=== PATIENT | male | born 1990 | race Caucasian/White ===

== ENCOUNTER 2017-03-10 12:25 | Emergency (ER) | payer SELFPAY ==
[2017-03-10 13:13] VITALS: BP 129/84; PULSE 94; RESP 18; TEMP 98; O2SAT 98
--- NOTE | 2017-03-10 14:53 | ED PDOC ---
HPI: General Adult Time Seen by Provider: 03/10/17 13:47 Chief Complaint (Nursing): Lower Extremity Problem/Injury History Per: Patient Additional Complaint(s): Pt. states since this morning he's had atraumatic lower back pain radiating down both legs. States pain is worse with movement. Pt. states he did not take any medications to help relieve symptoms. Denies incontinence, weakness, dysuria , hematuria, fever, abdominal pain, N/V/D. Past Medical History Reviewed: Historical Data, Nursing Documentation, Vital Signs Vital Signs: Last Vital Signs Temp 98 F 03/10/17 13:09 Pulse 94 H 03/10/17 13:09 Resp 18 03/10/17 13:09 BP 129/84 03/10/17 13:09 Pulse Ox 98 03/10/17 13:09 - Family History Family History: States: No Known Family Hx - Home Medications Home Medications: Ambulatory Orders Medication Instructions Recorded Cyclobenzaprine [Cyclobenzaprine 10 mg PO Q8 PRN #30 tab 03/10/17 HCl] Naproxen [Naprosyn] 500 mg PO BID PRN #30 tab 03/10/17 - Allergies Allergies/Adverse Reactions: Allergies Allergy/AdvReac Type Severity Reaction Status Date / Time haloperidol [From Haldol] Allergy ANAPHYLAXIS Verified 03/10/17 13:13 Review of Systems ROS Statement: Except As Marked, All Systems Reviewed And Found Negative Musculoskeletal: Positive for: Back Pain Physical Exam - Physical Exam Appears: Positive for: Well, Non-toxic, No Acute Distress Skin: Positive for: Normal Color, Warm. Negative for: Rash Eye Exam: Positive for: Normal appearance Gastrointestinal/Abdominal: Positive for: Normal Exam, Soft. Negative for: Tenderness Back: Positive for: Normal Inspection, Muscle Spasm (b/l paralumbar muscle spasm ). Negative for: L CVA Tenderness, R CVA Tenderness, Vertebral Tenderness Extremity: Positive for: Normal ROM Neurologic/Psych: Positive for: Alert, Oriented. Negative for: Aphasia, Facial Droop - ECG O2 Sat by Pulse Oximetry: 98 - Progress ED Course And Treament: Toradol 30mg IM, flexeril 10mg PO ordered. LS spine x-ray: no fx. On re-evaluation, pt. reports feeling better and less stiff. Disposition - Clinical Impression Clinical Impression: Low back pain - Patient ED Disposition Is Patient to be Admitted: No - Disposition Referrals: [facility] [Outside] Jesus Jaramillo III, MD [Staff Provider] - Disposition: Routine/Home Disposition Time: 14:15 Condition: IMPROVED Prescriptions: Cyclobenzaprine [Cyclobenzaprine HCl] 10 mg PO Q8 PRN #30 tab PRN Reason: Muscle Spasm Naproxen [Naprosyn] 500 mg PO BID PRN #30 tab PRN Reason: Pain Instructions: Acute Low Back Pain (ED) Forms: [employer] (Czech) Print Language: CAMEROONIAN
--- NOTE | 2017-03-10 16:46 | RAD ---
PROCEDURE: Radiographs of the Lumbar Spine. HISTORY: trauma COMPARISON: None available. FINDINGS: BONES: Horizontal lucencies project over the left sacrum likely artifactual related to overlying bowel gas. Visualized osseous structures appear otherwise intact without acute displaced fracture identified.Alignment appears satisfactory. No listhesis. DISC SPACES: Unremarkable. OTHER FINDINGS: None. IMPRESSION: Horizontal lucencies project over the left sacrum likely artifactual related to overlying bowel gas. Correlate clinically. CT may be considered for further evaluation if indicated.
== END 2017-03-10 15:00 | disposition home or self-care (01) ==
LOC: H.ER 12:25
DX: M54.5 Low back pain (principal)
CPT/HCPCS: 72100; 96372; 99282; J1885